=== PATIENT | male | born 1985 | race Caucasian/White ===

== ENCOUNTER 2017-04-26 14:40 | Emergency (ER) | payer SELFPAY ==
[2017-04-26] MEDS ORDERED: Sodium Chloride 0.9% 1,000 ML IV ONE ×2 (14:49→16:22)
[2017-04-26] MEDS ORDERED: DiphenhydrAMINE 50 mg/ml Inj IVP STA (14:51)
[2017-04-26] MEDS ORDERED: DiphenhydrAMINE 50 mg/ml Inj ONE (14:58)
--- NOTE | 2017-04-26 15:01 | C.PDOC ---
History Of Present Illness <Gwen Abdalla - Last Filed: 04/26/17 19:01> <Artemio Maloney - Last Filed: 04/26/17 20:14> 31 y/o male presents to the ED c/o of chest pain. The patient states that he took too much Mona and he believes that he is having an allergic reaction. The patient notes having itchy and red cheeks. Patient reports bilateral testicle pain. The patient denies headaches, dizziness, chills, sweats, nausea, vomiting , fever, and SOB. (Gwen Abdalla) History Per: Patient History/Exam Limitations: no limitations Onset/Duration Of Symptoms: Hrs Current Symptoms Are (Timing): Still Present Recent travel outside of the [place]: No <Gwen Abdalla - Last Filed: 04/26/17 19:01> <Artemio Maloney - Last Filed: 04/26/17 20:14> Time Seen by Provider: 04/26/17 14:42 Chief Complaint (Nursing): Chest Pain Past Medical History Reviewed: Historical Data, Nursing Documentation, Vital Signs - Medical History PMH: No Chronic Diseases, Seizures Surgical History: No Surg Hx Family History: States: Unknown Family Hx - Social History Hx Tobacco Use: Yes Hx Alcohol Use: Yes Hx Substance Use: Yes - Immunization History Hx Tetanus Toxoid Vaccination: No Hx Influenza Vaccination: No Hx Pneumococcal Vaccination: No <Gwen Abdalla - Last Filed: 04/26/17 19:01> Vital Signs: Last Vital Signs Temp 98.9 F 04/26/17 14:42 Pulse 90 04/26/17 16:01 Resp 20 04/26/17 16:01 BP 106/59 L 04/26/17 16:01 Pulse Ox 100 04/26/17 19:03 Review Of Systems Except As Marked, All Systems Reviewed And Found Negative. Constitutional: Negative for: Fever, Chills, Sweats Cardiovascular: Positive for: Chest Pain Respiratory: Negative for: Cough, Shortness of Breath Gastrointestinal: Negative for: Nausea, Vomiting, Abdominal Pain Genitourinary: Positive for: Scrotal Pain Skin: Negative for: Rash <Gwen Abdalla - Last Filed: 04/26/17 19:01> Physical Exam - Physical Exam Appears: Non-toxic, Agitated, Other ( tachycardiac) Skin: Dry, No Rash, Other (erythema on the cheeks ) Head: Atraumatic, Normacephalic Oral Mucosa: Moist Neck: Supple Chest: Symmetrical Cardiovascular: Rhythm Regular Respiratory: Normal Breath Sounds, No Rales, No Rhonchi, No Wheezing Gastrointestinal/Abdominal: Soft, No Tenderness, No Guarding, No Rebound Male Genital: Testicular Tenderness Extremity: Normal ROM, Capillary Refill (<2sec. ) Neurological/Psych: Oriented x3, Normal Speech, Normal Cognition Gait: Steady <Gwen Abdalla - Last Filed: 04/26/17 19:01> ED Course And Treatment - Laboratory Results Result Diagrams: 04/26/17 14:58 04/26/17 14:58 Lab Interpretation: No Acute Changes ECG: Interpreted By Me ECG Rhythm: Sinus Tachycardia ECG Interpretation: No Acute Changes Rate From EC O2 Sat by Pulse Oximetry: 100 (RA) Pulse Ox Interpretation: Normal - Radiology CXR: Interpreted by Nd CXR Interpretation: Yes: No Acute Disease Progress Note: The patient was administered EKG, Chest X-ray, Blood Work, Sodium Chloride 0.9% 1, 000ml Iv 1,000mls, and Drug screening. The results for the exams are unremarkable. The patient is resting comfortably. Upon reassessment, the patient is afebrile and is longer having chest pain. The patient is advised to have a 1-2 day follow up with his PMD to have a further evaluation. Reassessment Condition: Improved <Gwen Abdalla - Last Filed: 04/26/17 19:01> - Laboratory Results Result Diagrams: 04/26/17 14:58 04/26/17 14:58 <Artemio Maloney - Last Filed: 04/26/17 20:14> Disposition Counseled Patient/Family Regarding: Studies Performed, Diagnosis, Need For Followup, Rx Given - Disposition Disposition Time: 19:00 - POA Present On Arrival: None <Gwen Abdalla - Last Filed: 04/26/17 19:01> <Artemio Maloney - Last Filed: 04/26/17 20:14> - Disposition Referrals: [facility] [Outside] [facility] [Outside] Disposition: HOME/ ROUTINE Condition: STABLE Additional Instructions: Follow up with clinic for further evaluation Instructions: Polysubstance Abuse (ED) Forms: [employer] (Guinean) - Clinical Impression Clinical Impression: Polysubstance dependence, Chest pain - PA / CRIMINAL JUSTICE INSTRUCTOR / Resident Statement MD/DO has reviewed & agrees with the documentation as recorded. MD/DO has examined the patient and agrees with the treatment plan. - Scribe Statement The provider has reviewed the documentation as recorded by the Scribe <Gwen Abdalla - Last Filed: 04/26/17 19:01> <Artemio Maloney - Last Filed: 04/26/17 20:14> - Scribe Statement Shyla Morales All medical record entries made by the Scribe were at my direction and personally dictated by me. I have reviewed the chart and agree that the record accurately reflects my personal performance of the history, physical exam, medical decision making, and the department course for this patient. I have also personally directed, reviewed, and agree with the discharge instructions and disposition. (Gwen Abdalla) Physician Patient Turnover Patient Signed Over To: Artemio Maloney Handoff Comments: pending testicular US <Gwen Abdalla - Last Filed: 04/26/17 19:01> Addendum <Gwen Abdalla - Last Filed: 04/26/17 19:01> <Artemio Maloney - Last Filed: 04/26/17 20:14> Addendum: Signed out to me at change of shift pending testicular US. IMPRESSION: Left testicle is enlarged and hyperemic compared with the right. The patient reportedly has left testicular pain, and the findings could be secondary to left-sided orchitis. Small to moderate left hydrocele, which appears mildly complex. Right-sided testicular microlithiasis. This finding can be associated with testicular neoplasm. Follow-up US recommended for surveillance in patients with risk factors for testicular neoplasm, such as a personal/family history of germ cell tumor, maldescent or undescended testes, orchidopexy, or testicular atrophy. See above for remaining findings. No evidence of testicular torsion Patient states he had all immunizations up to date. Will treat with antibiotics for gonorrhea/chlamydia. Copy of US given to patient to have follow up for testicular findings. Standard of care for cocaine associated chest pain is serial EKGs/enzymes for 9- 12 hours. I informed patient of this and offered further observation. Patient has decided to leave against medical advice. He is aware of the risks and benefits of doing so including or permanent disability. He was informed that he may return at any time. He was counseled on cessation of drugs. (Artemio Maloney) Diag/Dispo/POA <Gwen Abdalla - Last Filed: 04/26/17 19:01> - Present on Admission Any Indicators Present on Admission: No <Artemio Maloney - Last Filed: 04/26/17 20:14> - Discharge Discharge Instructions: Polysubstance Abuse (ED), Hydrocele (ED), Epididymo- orchitis (ED), Cocaine Abuse (ED) Diagnosis: Polysubstance dependence, Chest pain, Hydrocele, Orchitis, Testicular microlithiasis Disposition: AGAINST MEDICAL ADVICE Referrals: [facility] [Outside] [facility] [Outside] Additional Instructions: Follow up with clinic for further evaluation Time Seen by Provider: 04/26/17 14:42 Forms: [employer] (Guinean), (AMA) Informed Refusal
[2017-04-26 15:07] LABS: BASO # 0.1 K/uL (0.0-0.2); BASO % 1.2 % (0.0-2.0); EOS % 0.4 % (0.0-4.0); HEMATOCRIT 48.3 % (35.0-51.0); LYMPH # 2.4 K/uL (1.0-4.3); LYMPH % 24.8 % (20.0-40.0); MEAN CELL VOLUME 92.6 fL (80.0-94.0); MEAN CORPUSCULAR HEMOGLOBIN 31.7 pg (27.0-31.0); MEAN CORPUSCULAR HGB CONC 34.2 g/dL (33.0-37.0); MEAN PLATELET VOLUME 7.6 fL (7.2-11.7); MONO # 0.8 K/uL (0.0-0.8); MONO % 8.8 % (0.0-10.0); RED CELL DISTRIBUTION WIDTH 12.8 % (11.5-14.5); WHITE BLOOD COUNT 9.6 K/uL (4.8-10.8)
[2017-04-26 15:32] LABS: CHLORIDE 99 mmol/L (98-107); SODIUM 134 mmol/L (132-148)
[2017-04-26 15:33] LABS: POTASSIUM 3.5 mmol/L (3.6-5.2)
[2017-04-26 15:35] LABS: ALB/GLOB RATIO 1.7 (1.0-2.1); ALKALINE PHOSPHATASE 86 U/L (38-126); ALT/SGPT 34 U/L (21-72); AST/SGOT 34 U/L (17-59); BILIRUBIN,TOTAL 1.4 mg/dL (0.2-1.3); BLOOD UREA NITROGEN 15 mg/dL (9-20); CALCIUM 10.2 mg/dl (8.6-10.4); CARBON DIOXIDE 17 mmol/L (22-30); GFR AFRICAN-AMERICAN > 60; GLUCOSE,RANDOM 95 mg/dL (75-110); TOTAL PROTEIN 7.6 g/dL (6.3-8.3)
[2017-04-26 15:36] LABS: ALCOHOL SERUM 30 mg/dl (0-10)
[2017-04-26 16:54] LABS: URINE BILIRUBIN NEGATIVE (NEGATIVE); URINE BLOOD NEGATIVE (NEGATIVE); URINE COLOR Yellow (YELLOW); URINE GLUCOSE (UA) NORMAL (Normal); URINE KETONE TRACE mg/dL (NEGATIVE); URINE LEUKOCYTE ESTERASE NEG Leu/uL (Negative); URINE PROTEIN NEGATIVE (NEGATIVE); URINE UROBILINOGEN NORMAL mg/dL (0.2-1.0); WBC URINE < 1 /hpf (0-5)
--- NOTE | 2017-04-26 17:24 | RAD ---
Chest x-ray two views History: Shortness of breath. Comparison: None available. Findings: Mild venous congestion. Heart size within normal limits. Impression: Mild venous congestion.
--- NOTE | 2017-04-26 19:43 | US ---
EXAM: US Scrotum EXAM DATE/TIME: 04/26/2017 3:44 PM CLINICAL HISTORY: 31 years old, male; Pain; Scrotum pain TECHNIQUE: Real-time ultrasound of the scrotum with color Doppler and image documentation. COMPARISON: No relevant prior studies available. FINDINGS: Right testicle: Demonstrates scattered, tiny, round echogenic foci, most compatible with microcalcifications/testicular microlithiasis. The largest of these measures 1.5 mm. Otherwise within normal limits in appearance. Measures 3.4 x 1.6 x 2.2 cm. No masses visualized. Flow seen in the right testicle on color and Doppler imaging, with no evidence of torsion. Right epididymis: Within normal limits in appearance. Head measures 8 mm maximally. Left testicle: Enlarged compared with the right testicle, measuring 4.5 x 3 x 3.1 cm. Demonstrates increased vascularity overall compared with the right testicle. Otherwise within normal limits in appearance. No masses visualized. Flow seen in the left testicle on color and Doppler imaging, with no evidence of torsion. Left epididymis: Within normal limits in appearance. The head measures 1.3 cm maximally. Hydrocoele: Small to moderate left hydrocele is seen, which appears mildly complex, containing low-level echoes within it. Varicocele: None seen. IMPRESSION: Left testicle is enlarged and hyperemic compared with the right. The patient reportedly has left testicular pain, and the findings could be secondary to left-sided orchitis. Small to moderate left hydrocele, which appears mildly complex. Right-sided testicular microlithiasis. This finding can be associated with testicular neoplasm. Follow-up US recommended for surveillance in patients with risk factors for testicular neoplasm, such as a personal/family history of germ cell tumor, maldescent or undescended testes, orchidopexy, or testicular atrophy. See above for remaining findings. No evidence of testicular torsion.
[2017-04-26] MEDS ORDERED: cefTRIAXone (Rocephin) 250 mg Inj IM STA (20:07)
[2017-04-26 20:31] VITALS: BP 121/79; PULSE 88; RESP 18; TEMP 98.1; O2SAT 99
--- NOTE | 2017-04-28 10:42 | CARD ---
APPROVED REPORT EKG Measurement Heart [id number] <Conclusion> Sinus tachycardia Otherwise normal ECG
== END 2017-04-26 20:35 | disposition left against medical advice (07) ==
LOC: C.ER 14:40
DX: F19.20 Other psychoactive substance dependence, uncomplicated (principal); R07.9 Chest pain, unspecified; Z87.891 Personal history of nicotine dependence
CPT/HCPCS: 71020; 76870; 80053; 81001; 82550; 82553; 83690; 84484; 85025; 93005; 96360; 96372; 99285; G0480; J0696; J7040

== ENCOUNTER 2017-10-09 14:02 | Emergency (ER) | payer MEDICAID, OTHER ==
[2017-10-09 15:20] LABS: BASO # 0.1 K/uL (0.0-0.2); BASO % 0.8 % (0.0-2.0); EOS # 0.1 K/uL (0.0-0.7); HEMOGLOBIN 16.7 g/dL (12.0-18.0); LYMPH # 1.7 K/uL (1.0-4.3); LYMPH % 17.5 % (20.0-40.0); MEAN CELL VOLUME 93.4 fL (80.0-94.0); MEAN CORPUSCULAR HEMOGLOBIN 33.1 pg (27.0-31.0); MEAN CORPUSCULAR HGB CONC 35.4 g/dL (33.0-37.0); MEAN PLATELET VOLUME 7.8 fL (7.2-11.7); MONO # 0.8 K/uL (0.0-0.8); MONO % 7.9 % (0.0-10.0); NEUT # 7.1 K/uL (1.8-7.0); NEUT % 72.8 % (50.0-75.0); RBC 5.05 Mil/uL (4.40-5.90); WHITE BLOOD COUNT 9.8 K/uL (4.8-10.8)
[2017-10-09] MEDS ORDERED: Sodium Chloride 0.9% 1,000 ML IV ONE ×2 (15:26→17:48)
[2017-10-09 15:34] LABS: ALB/GLOB RATIO 1.3 (1.0-2.1); ALBUMIN 4.4 g/dL (3.5-5.0); ALT/SGPT 26 U/L (21-72); AST/SGOT 21 U/L (17-59); BLOOD UREA NITROGEN 14 mg/dL (9-20); CALCIUM 9.6 mg/dl (8.6-10.4); GFR AFRICAN-AMERICAN > 60; GFR NON-AFRICAN AMERICAN > 60
[2017-10-09] MEDS ORDERED: Sodium Chloride 0.9% 1,000 ML ONE ×2 (15:48→18:04)
[2017-10-09 16:21] VITALS: RESP 18
--- NOTE | 2017-10-09 18:09 | C.PDOC ---
History Of Present Illness 32 y/o male presents to ED with complaints of sharp substernal chest pain since 9am this morning after doing cocaine. Patient denies sob, cough, fever, nausea, vomiting or any other complaints at this time. Chief Complaint (Nursing): Chest Pain History Per: Patient History/Exam Limitations: no limitations Onset/Duration Of Symptoms: Hrs Current Symptoms Are (Timing): Still Present Quality: Sharp Past Medical History Reviewed: Historical Data, Nursing Documentation, Vital Signs Vital Signs: Last Vital Signs Temp 97.8 F 10/09/17 17:28 Pulse 72 10/09/17 17:28 Resp 18 10/09/17 17:28 BP 131/69 10/09/17 17:28 Pulse Ox 95 10/09/17 18:09 - Medical History PMH: Seizures Surgical History: No Surg Hx Family History: States: No Known Family Hx - Social History Hx Tobacco Use: Yes Hx Alcohol Use: Yes Hx Substance Use: Yes - Immunization History Hx Tetanus Toxoid Vaccination: No Hx Influenza Vaccination: No Hx Pneumococcal Vaccination: No Review Of Systems Constitutional: Negative for: Fever, Chills Cardiovascular: Positive for: Chest Pain Respiratory: Negative for: Cough, Shortness of Breath Gastrointestinal: Negative for: Nausea, Vomiting Skin: Negative for: Rash Physical Exam - Physical Exam Appears: Non-toxic, No Acute Distress Skin: Warm, Dry, No Rash Head: Atraumatic, Normacephalic Eye(s): bilateral: Normal Inspection Oral Mucosa: Moist Neck: Normal ROM, Supple Cardiovascular: Rhythm Regular Respiratory: Normal Breath Sounds, No Rales, No Rhonchi, No Wheezing Gastrointestinal/Abdominal: Soft, No Tenderness, No Guarding, No Rebound Extremity: Normal ROM, Capillary Refill (<2 seconds) Neurological/Psych: Oriented x3, Normal Speech, Normal Cognition ED Course And Treatment - Laboratory Results Result Diagrams: 10/09/17 15:17 10/09/17 15:17 ECG: Interpreted By Me, Viewed By Me ECG Rhythm: Sinus Rhythm Rate From EC (BPM) O2 Sat by Pulse Oximetry: 95 (RA) Pulse Ox Interpretation: Normal Disposition - Disposition Referrals: [facility] [Outside] [facility] [Outside] Disposition: HOME/ ROUTINE Disposition Time: 17:30 Condition: GOOD Additional Instructions: Thank you for letting us take care of you today. The emergency medical care you received today was directed at your acute symptoms. If you were prescribed any medication, please fill it and take as directed. It may take several days for your symptoms to resolve. Return to the Emergency Department if your symptoms worsen, do not improve, or if you have any other problems. Please contact your doctor or call one of the physicians/clinics you have been referred to that are listed on the Patient Visit Information form that is included in your discharge packet. Bring any paperwork you were given at discharge with you along with any medications you are taking to your follow up visit. Our treatment cannot replace ongoing medical care by a primary care provider (PCP) outside of the emergency department. Thank you for allowing the [facility] team to be part of your care today. Take all your medication as prescribed everyday. Follow up with the clinic in 2-3 days for re-evaluation and further management. Instructions: Drug Abuse and Drug Addiction (DC), Cocaine - Clinical Impression Clinical Impression: Cocaine abuse, Chest discomfort - Scribe Statement The provider has reviewed the documentation as recorded by the Yessy Osullivan All medical record entries made by the Yessy were at my direction and personally dictated by me. I have reviewed the chart and agree that the record accurately reflects my personal performance of the history, physical exam, medical decision making, and the department course for this patient. I have also personally directed, reviewed, and agree with the discharge instructions and disposition.
[2017-10-09 19:55] VITALS: BP 124/78; PULSE 78; TEMP 97.7; O2SAT 100
--- NOTE | 2017-10-12 11:07 | CARD ---
APPROVED REPORT EKG Measurement Heart [id number] <Conclusion> Sinus tachycardia Otherwise normal ECG
== END 2017-10-09 20:10 | disposition home or self-care (01) ==
LOC: C.ER 14:02
DX: R07.9 Chest pain, unspecified (principal); F14.10 Cocaine abuse, uncomplicated
CPT/HCPCS: 80053; 84484; 85025; 93005; 96361; 96374; 99284; J1885; J7040